=== PATIENT | female | born 2005 | race Caucasian/White ===

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

== ENCOUNTER 2023-04-02 14:15 | Outpatient (CLI) | payer MEDICAID ==
[2023-04-02 14:57] LABS: THYROID STIMULATING HORMONE 2.17 uIU/mL (0.34-5.60)
== END 2023-04-02 14:16 | disposition home or self-care (01) ==
LOC: LAB 14:15
PROVIDERS: ATTEND Pediatrics
DX: E06.3 Autoimmune thyroiditis (principal)
CPT/HCPCS: 36415; 84439; 84443

== ENCOUNTER 2023-04-17 02:31 | Outpatient (CLI) | payer MEDICAID | END 2023-04-17 23:59 | disposition EMS.NT | LOC: EMS 02:31 | DX: M25.562 Pain in left knee (principal); W01.0XXA Fall on same level from slipping, tripping and stumbling without subsequent striking against object, initial encounter; Y93.41 Activity, dancing; Y92.003 Bedroom of unspecified non-institutional (private) residence as the place of occurrence of the external cause ==

== ENCOUNTER 2023-04-17 03:16 | Emergency (ER) | payer MEDICAID ==
[2023-04-17 03:48] VITALS: BP 131/80
--- NOTE | 2023-04-17 03:59 | ED Physician Documentation ---
History of Present Illness - Stated complaint Stated Complaint: L KNEE PX - Chief complaint Chief Complaint: Ext Problem - History obtained from History obtained from: Patient, Family (grandmother) - Additonal information Additional information: 18yF with pmh knee instability issues and recurrent knee dislocation p/w popping sensation prior to arrival in the knee during which time she states she believes her knee popped out and then back in to place. endorsed severe pain with ROM of the knee 8/10 severity. denies numbness PD PAST MEDICAL HISTORY - Past Medical History Past Medical History: Yes Endocrine/Autoimmune: HyPOthyroidism - Past Surgical History Past Surgical History: Yes General: EGD - Present Medications Home Medications: Ambulatory Orders Medication Instructions Recorded Confirmed Levothyroxine [Synthroid] 112 mcg PO QDAC 04/17/23 04/17/23 Norethindrone Acetate 5 mg PO DAILY 04/17/23 04/17/23 - Allergies Allergies/Adverse Reactions: Allergies Allergy/AdvReac Type Severity Reaction Status Date / Time Penicillins Allergy Rash Verified 04/17/23 03:40 - Social History Does the pt smoke?: No Smoking Status: Never smoker Does the pt drink ETOH?: No Does the pt have substance abuse?: No PD ED PE NORMAL - Vitals Vital signs reviewed: Yes - General General: Alert and oriented X 3, No acute distress, Well developed/nourished, Other (anxious appearing) - Extremities Extremities: No deformity, Other (L knee tender with ROM. laxity with valgus and varus force. 2+ DP pulses BL. csm intact bl LE) Results - Vitals Vitals: Vital Signs - 24 hr 04/17/23 03:34 Temperature 36.8 C Heart Rate 125 H Respiratory 18 Rate Blood Pressure 131/80 H O2 Saturation 98 Oxygen O2 Source Room air PD Medical Decision Making - ED course ED course: 18yF p/w L knee instability and pain. given no history of inciting trauma, as well as her benign physical exam, it is unlikely she has a fracture at this time. provided with po motrin with relief. long leg knee splint applied. advised outpatient f/u with in tube conversion technician for referral to ortho and pt as needed. return precautions given. Departure - Departure Disposition: 01 Home, Self Care Clinical Impression: Knee pain, left, Instability of left knee joint Condition: Stable Instructions: ED RICE Follow-Up: Dustin Chance MD [Provider Admit Priv/Credential] - Comments: You were seen in the emergency department for left knee injury. Please follow-up with orthopedics and return to the emergency department if you have any new or worsening symptoms or other concerns.
[2023-04-17] MEDS: IBUPROFEN 600 MG TABLET PO STA (04:03)
[2023-04-17 04:37] VITALS: O2SAT 99
== END 2023-04-17 04:30 | disposition home or self-care (01) ==
LOC: ED 03:16
DX: M25.562 Pain in left knee (principal); M25.362 Other instability, left knee; E03.9 Hypothyroidism, unspecified
CPT/HCPCS: 99282; 99283; A9270

== ENCOUNTER 2023-04-21 09:15 | Outpatient (CLI) | payer MEDICAID ==
--- NOTE | 2023-04-21 18:50 | XRAY Report ---
PROCEDURE: Knee 3 View LT INDICATIONS: LEFT KNEE PATELLA DISLOCATION, BILAT SUNRISE FOR COMP TECHNIQUE: 3 views of the knee was obtained. COMPARISON: None FINDINGS: Bones: No fractures or dislocations. No suspicious bony lesions. Soft tissues: No knee joint effusion. No suspicious soft tissue calcifications or masses. IMPRESSION: Unremarkable knee radiographs Reviewed by: Srinivas Anthony MD on 04/21/2023 5:49 PM [place] Approved by: Srinivas Anthony MD on 04/21/2023 5:49 PM [place] Station ID: [id number]
== END 2023-04-21 23:59 | disposition home or self-care (01) ==
LOC: DI.WOS 09:15
PROVIDERS: ATTEND Orthopaedic Surgery
DX: M25.562 Pain in left knee (principal)